=== PATIENT | female | born 1950 | race American Indian/Alaskan Native ===

== ENCOUNTER 2019-01-29 21:11 | Inpatient (IN) | payer MEDICARE, OTHER ==
--- NOTE | 2019-01-29 22:05 | Emergency Department Report ---
Blank Doc - Documentation Documentation: This is a 68-year-old female that presents with syncope episode today. This initial assessment/diagnostic orders/clinical plan/treatment(s) is/are subject to change based on patient's health status, clinical progression and re- assessment by fellow clinical providers in the ED. Further treatment and workup at subsequent clinical providers discretion. Patient/guardians urged not to elope from the ED as their condition may be serious if not clinically assessed and managed. Initial orders include: 1- Patient sent to MAIN ED for further evaluation and treatment 2- EKG 3- labs 3- CT head
[2019-01-29 23:12] LABS: Basophils # (Auto) 0.1 K/mm3 (0.0-0.1); Basophils % (Auto) 0.6 % (0.0-1.8); Eosinophils # (Auto) 0.2 K/mm3 (0.0-0.4); Eosinophils % (Auto) 1.7 % (0.0-4.3); Hemoglobin 13.9 gm/dl (10.1-14.3); Lymphocytes # (Auto) 1.7 K/mm3 (1.2-5.4); Lymphocytes % (Auto) 12.3 % (13.4-35.0); Mean Corpuscular HGB Conc 34 % (30-34); Mean Corpuscular Volume 94 fl (79-97); Monocytes # (Auto) 0.9 K/mm3 (0.0-0.8); Monocytes % (Auto) 6.5 % (0.0-7.3); Platelet Count 189 K/mm3 (140-440); Red Blood Count 4.36 M/mm3 (3.65-5.03); Red Cell Distribution Width 14.7 % (13.2-15.2)
[2019-01-29 23:21] LABS: INR 0.89 (0.87-1.13); Partial Thromboplastin Time 23.8 Sec. (24.2-36.6)
[2019-01-29 23:37] LABS: Creatine Kinase MB 2.8 ng/mL (0.0-4.0)
[2019-01-29 23:40] LABS: Alanine Aminotransferase 13 units/L (7-56); Albumin 3.6 g/dL (3.9-5); BUN/Creatinine Ratio 16; Blood Urea Nitrogen 19 mg/dL (7-17); Calcium 9.4 mg/dL (8.4-10.2); Hemolysis Index 41
--- NOTE | 2019-01-30 00:26 | Cat Scan Report ---
PROCEDURE: CT HEAD/BRAIN WO CON TECHNIQUE: Computerized tomography of the head was performed without contrast material. HISTORY: Syncope COMPARISONS: None . FINDINGS: Brain: There is no evidence of intracranial hemorrhage. No parenchymal hemorrhage is seen. No mass lesions or mass effect is identified. No abnormal extra-axial fluid collections or masses are seen. There is nonspecific mineralization of the right basal ganglia. There is some decreased density seen in the periventricular white matter without mass effect. This i s fairly symmetric and does not exhibit any mass effect consistent with gliosis probably on the basis of microvascular disease or white matter changes of aging. Ventricles: The ventricles are normal size and are midline.. Bone Windows: No evidence of fracture. Paranasal sinuses: Visualized portions appear clear.. Mastoid air cells: Clear. IMPRESSION: Mild decreased density periventricular white matter without mass effect suggesting gliosis related to microvascular disease or white matter changes of aging. No other abnormalities are identified. This document is electronically signed by Kain Pereyra MD., Jan 30 2019 12:24:21 AM ET
--- NOTE | 2019-01-30 00:43 | Emergency Department Report ---
ED Syncope HPI - General Chief Complaint: Syncope Stated Complaint: FELL WITH HEAD INJURY Time Seen by Provider: 01/29/19 22:03 Source: patient, family Exam Limitations: no limitations - History of Present Illness Initial Comments: 68-year-old female with past medical history GERD, hypertension, multiple sclerosis, and mitral valve prolapse as a possible complaints of syncopal episode. Patient states she felt lightheaded and weak all over. Her daughter showed me a video of the patient. She was exiting the home when episode happened. At the doorway she became weak and wasn't responding to conversation. She then fell forward as her purse caught in the door handle, landing on the ground and striking the left side of her head. No seizure activity noted. Unconscious episode was very brief. Patient has been icing her left forehead hematoma. Complains of 7/10 headache. She denies any shortness of breath, chest pain, palpitations, abdominal pain, nausea, vomiting, diaphoresis, melena, hematochezia, diarrhea, hematemesis, or decreased by mouth intake. Since the fall she has had a left sided rib pain that is worse with movement, palpation, and deep inspiration. Patient reports he had a stress test several weeks ago performed by her PMD. PMD is affiliated with [facility]. She also sees a neurologist for her multiple sclerosis. - Related Data Allergies/Adverse Reactions: Allergies No Known Allergies Allergy (Unverified 01/29/19 21:21) ED Review of Systems ROS: Stated complaint: FELL WITH HEAD INJURY Other details as noted in HPI Comment: All other systems reviewed and negative ED Past Medical Hx - Past Medical History Hx Hypertension: Yes Hx CVA: No Hx Heart Attack/AMI: No Hx Congestive Heart Failure: No Hx Diabetes: No Hx Deep Vein Thrombosis: No Hx Pulmonary Embolism: No Hx GERD: Yes Hx Liver Disease: No Hx Renal Disease: No Hx of Cancer: No Hx Sickle Cell Disease: No Hx Arthritis: Yes Hx Headaches / Migraines: Yes Hx Seizures: No Hx Kidney Stones: No Hx Psychiatric Treatment: No Hx Asthma: (Bronchitis) Hx COPD: No Hx Tuberculosis: No Hx Dementia: No Hx HIV: No Additional medical history: MS, MVP - Surgical History Hx Open Heart Surgery: No Hx Pacemaker: No Hx Internal Defibrillator: No Hx Cholecystectomy: Yes Hx Appendectomy: No Hx Breast Surgery: No Additional Surgical History: Hernia Repair, ACL Repair - Social History Smoking Status: Never Smoker Substance Use Type: Marijuana ED Physical Exam - General Limitations: No Limitations - Other Other exam information: General: No limitations, patient is alert in no acute distress Head exam: Atraumatic, normocephalic Eyes exam: Normal appearance ENT: Moist mucous membrane, normal oropharynx Neck exam: Normal inspection, full range of motion, no meningismus nontender Respiratory exam: Clear to auscultation bilateral, no wheezes, rales, crackles Cardiovascular: Normal rate and rhythm, lower rib tenderness underneath the breast. Without crepitus, ecchymosis, or deformity. L Abdomen: Soft, nondistended, and nontender, with normal bowel sounds, no rebound, or guarding Extremity: Full range of motion normal inspection no deformity Back: Normal Inspection, full range of motion, no tenderness Neurologic: Alert, oriented x3, cranial nerves intact, no motor or sensory deficit Psychiatric: normal affect, normal mood Skin: Warm, dry, intact ED Course Vital Signs 01/29/19 01/29/19 01/29/19 21:17 22:01 23:26 Temperature 98.0 F 98.0 F Pulse Rate 87 90 77 Respiratory 18 18 11 L Rate Blood Pressure 105/56 105/56 O2 Sat by Pulse 98 98 Oximetry 01/29/19 01/29/19 01/29/19 23:27 23:28 23:29 Temperature Pulse Rate 79 78 81 Respiratory 13 16 12 Rate Blood Pressure 165/84 165/84 O2 Sat by Pulse 99 99 99 Oximetry 01/29/19 01/29/19 23:31 23:33 Temperature Pulse Rate 75 Respiratory 11 L 16 Rate Blood Pressure 165/84 O2 Sat by Pulse 99 99 Oximetry ED Medical Decision Making - Lab Data Result diagrams: 01/29/19 22:50 01/29/19 22:50 Lab Results 01/29/19 01/29/19 01/29/19 Range/Units 22:50 22:50 22:50 WBC 13.6 H (4.5-11.0) K/mm3 RBC 4.36 (3.65-5.03) M/mm3 Hgb 13.9 (10.1-14.3) gm/dl Hct 41.0 (30.3-42.9) % MCV 94 (79-97) fl MCH 32 (28-32) pg MCHC 34 (30-34) % RDW 14.7 (13.2-15.2) % Plt Count 189 (140-440) K/mm3 Lymph % (Auto) 12.3 L (13.4-35.0) % [place] % (Auto) 6.5 (0.0-7.3) % Eos % (Auto) 1.7 (0.0-4.3) % Baso % (Auto) 0.6 (0.0-1.8) % Lymph # 1.7 (1.2-5.4) K/mm3 [place] # 0.9 H (0.0-0.8) K/mm3 Eos # 0.2 (0.0-0.4) K/mm3 Baso # 0.1 (0.0-0.1) K/mm3 Seg Neutrophils % 78.9 H (40.0-70.0) % Seg Neutrophils # 10.7 H (1.8-7.7) K/mm3 PT 12.6 (12.2-14.9) Sec. INR 0.89 (0.87-1.13) APTT 23.8 L (24.2-36.6) Sec. Sodium 141 (137-145) mmol/L Potassium 3.9 (3.6-5.0) mmol/L Chloride 108.5 H (98-107) mmol/L Carbon Dioxide 20 L (22-30) mmol/L Anion Gap 16 mmol/L BUN 19 H (7-17) mg/dL Creatinine 1.2 (0.7-1.2) mg/dL Estimated GFR 54 ml/min BUN/Creatinine Ratio 16 % Glucose 110 H (65-100) mg/dL Calcium 9.4 (8.4-10.2) mg/dL Total Bilirubin < 0.20 (0.1-1.2) mg/dL AST 16 (5-40) units/L ALT 13 (7-56) units/L Alkaline Phosphatase 49 (35-129) units/L Total Creatine Kinase 125 (30-135) units/L CK-MB (CK-2) 2.8 (0.0-4.0) ng/mL CK-MB (CK-2) Rel Index 2.2 (0-4) Troponin T < 0.010 (0.00-0.029) ng/mL Total Protein 6.8 (6.3-8.2) g/dL Albumin 3.6 L (3.9-5) g/dL Albumin/Globulin Ratio 1.1 % - EKG Data -: EKG Interpreted by Me EKG shows normal: sinus rhythm (69), axis (qrs -52), QRS complexes (qrsd 76), ST-T waves (lat t wave ) Rate: normal - EKG Data When compared to previous EKG there are: previous EKG unavailable - Radiology Data Radiology results: report reviewed CT head non contrast HISTORY: Syncope COMPARISONS: None . FINDINGS: Brain: There is no evidence of intracranial hemorrhage. No parenchymal hemorrhage is seen. No mass lesions or mass effect is identified. No abnormal extra-axial fluid collections or masses are seen. There is nonspecific mineralization of the right basal ganglia. There is some decreased density seen in the periventricular white matter without mass effect. This is fairly symmetric and does not exhibit any mass effect consistent with gliosis probably on the basis of microvascular disease or white matter changes of aging. Ventricles: The ventricles are normal size and are midline.. Bone Windows: No evidence of fracture. Paranasal sinuses: Visualized portions appear clear.. Mastoid air cells: Clear. IMPRESSION: Mild decreased density periventricular white matter without mass effect suggesting gliosis related to microvascular disease or white matter changes of aging. No other abnormalities are identified. PROCEDURE: CT CERVICAL SPINE WO CON TECHNIQUE: Computerized tomography of the cervical spine was performed from the skull base to T1 without contrast material. HISTORY: Syncope COMPARISONS: None . FINDINGS: No fracture or subluxation is seen. Prevertebral soft tissues appear normal. Posterior elements are intact. Moderate facet arthritis visualized bilaterally at C2-3, C3-4, milder changes seen in the remainder of the cervical spine.. Diffuse disc space narrowing with anterior and posterior osteophyte formation visualized from the C3-4 through the C7-T1 level. The posterior osteophytic spurs are largest at C6-C7. No focal disc herniation is seen. The posterior osteophytic spurs do obscure portions of the anterior epidural space without definite cord compression or spinal stenosis. IMPRESSION: No fracture or subluxation is seen. Moderate degenerative disc disease 7) is present as described. No focal disc herniation or spinal stenosis is seen. . PROCEDURE: XR RIBS UNI W PA CHEST 3+V LT TECHNIQUE: Unilateral rib radiographs, 2 views of the left ribs. HISTORY: fall, left rib pain COMPARISONS: None . FINDINGS: Lung: Normal . Pleural space: Normal . Pneumothorax: None . Bony thorax/ribs: No acute or displaced rib fractures. . IMPRESSION: No acute or displaced rib fracture - Medical Decision Making pt s/p syncope episode with forehead and rib injury ct images without acute findings ekg with flip t waves lat, no previous for comparison, trp neg. cp reproducible and occured after fall on left side rib series results pending at dispo pt tx with asa and tramadol hospitalist informed for admission - Differential Diagnosis fracture, contusion, sprain Critical Care Time: No Critical care attestation.: If time is entered above; I have spent that time in minutes in the direct care of this critically ill patient, excluding procedure time. ED Disposition Clinical Impression: Syncope, Rib pain on left side, Hx of multiple sclerosis, HTN (hypertension), History of mitral valve prolapse, Traumatic hematoma of forehead Disposition: OP ADMIT IP TO THIS HOSP Is pt being admited?: Yes Condition: Stable Time of Disposition: 01:50
--- NOTE | 2019-01-30 00:43 | Cat Scan Report ---
PROCEDURE: CT CERVICAL SPINE WO CON TECHNIQUE: Computerized tomography of the cervical spine was performed from the skull base to T1 wit hout contrast material. HISTORY: Syncope COMPARISONS: None . FINDINGS: No fracture or subluxation is seen. Prevertebral soft tissues appear normal. Posterior elements are i ntact. Moderate facet arthritis visualized bilaterally at C2-3, C3-4, milder changes seen in the go yanni of the cervical spine.. Diffuse disc space narrowing with anterior and posterior osteophyte for mation visualized from the C3-4 through the C7-T1 level. The posterior osteophytic spurs are largest at C6-C7. No focal disc herniation is seen. The posterior osteophytic spurs do obscure portions of th e anterior epidural space without definite cord compression or spinal stenosis. IMPRESSION: No fracture or subluxation is seen. Moderate degenerative disc disease 7) is present as described. No focal disc herniation or spinal stenosis is seen. . This document is electronically signed by Kain Pereyra MD., Jan 30 2019 12:41:43 AM ET
[2019-01-30] MEDS ORDERED: ULTRAM PO ONE (01:45)
[2019-01-30] MEDS ORDERED: TORADOL IV ONE (01:45)
[2019-01-30] MEDS ORDERED: ASPIRIN PO ONE (01:46)
--- NOTE | 2019-01-30 02:03 | XRay Report ---
PROCEDURE: XR RIBS UNI W PA CHEST 3+V LT TECHNIQUE: Unilateral rib radiographs, 2 views of the left ribs. HISTORY: fall, left rib pain COMPARISONS: None . FINDINGS: Lung: Normal . Pleural space: Normal . Pneumothorax: None . Bony thorax/ribs: No acute or displaced rib fractures. . IMPRESSION: No acute or displaced rib fractures. . This document is electronically signed by Aldair Reyes MD., Jan 30 2019 02:00:30 AM ET
[2019-01-30] MEDS ORDERED: SODIUM CHLORIDE FLUSH SYRINGE 10 ML IV PRN (02:48)
[2019-01-30] MEDS ORDERED: TYLENOL PO PRN (02:48)
[2019-01-30] MEDS ORDERED: ZOFRAN IV PRN (02:48)
[2019-01-30] MEDS ORDERED: TORADOL ONE (02:49)
[2019-01-30 04:33] LABS: Bacteria,Urine 1+ /HPF (Negative); Bilirubin,Urine NEG (Negative); Blood,Urine NEG (Negative); Color,Urine Yellow (Yellow); Hyaline Casts,Urine 5 /LPF; Mucus,Urine 2+ /HPF; Protein,Urine <15 mg/dL mg/dL (Negative); Urobilinogen,Urine < 2.0 mg/dL (<2.0)
--- NOTE | 2019-01-30 05:21 | History and Physical Report ---
<LEROY LION - Last Filed: 01/30/19 05:22> History of Present Illness Date of examination: 01/30/19 Date of admission: 01/30/19 03:21 Chief complaint: Syncope History of present illness: Pt is a 68-year-old female with PMHx of GERD, hypertension, multiple sclerosis, and mitral valve prolapse (MVP) who was brought to the ER for complaints of syncopal episode. Patient states she felt lightheaded and weak, lost consciousness and collapsed to the ground. Pt's daughter who witness the incident states that she passed out for a short period, landed on the ground and strike the left side of her head. She did not report any seizure activity, bladder or bowel incontinence, postical confusion or disorientation. Patient complains of headache, pain on the left rib cage, that is worse with movement, manipulation and with deep breathing. Pt denies chest pain, denies palpitations, denies abdominal pain, denies dizziness, denies nausea, denies vomiting, denies SOB, denies diaphoresis. On admission, pt was alert and orientated x 4, pleasant, able to provide medical history with excellent memory. A CT scan of the head was negative except for mild decrease periventricular white matter, CT spine negative fracture except for degenerative joint disease, reviewed extremity was negative for fracture. Patient is admitted for further evaluation of her syncopal episode. Past History Past Medical History: CAD (mitral valve prolapse), GERD, hypertension, migraines, other (multiple sclerosis) Past Surgical History: No surgical history Social history: no significant social history Family history: no significant family history Medications and Allergies Allergies Allergy/AdvReac Type Severity Reaction Status Date / Time No Known Allergies Allergy Unverified 01/29/19 21:21 Active Meds: Active Medications Acetaminophen (Tylenol) 650 mg PO Q4H PRN PRN Reason: Pain MILD(1-3)/Fever >100.5/LANG Ondansetron HCl (Zofran) 4 mg IV Q8H PRN PRN Reason: Nausea And Vomiting Sodium Chloride (Sodium Chloride Flush Syringe 10 Ml) 10 ml IV BID CHRISTIANO Sodium Chloride (Sodium Chloride Flush Syringe 10 Ml) 10 ml IV PRN PRN PRN Reason: LINE FLUSH Review of Systems Musculoskeletal: other (left rib cage pain) Exam - Constitutional Vitals: Temp Pulse Resp BP Pulse Ox 98.0 F 75 16 165/74 99 01/29/19 22:01 01/29/19 23:31 01/29/19 23:33 01/30/19 04:05 01/30/19 04:05 General appearance: Present: no acute distress - EENT Eyes: Present: PERRL, EOM intact ENT: hearing intact - Neck Neck: Present: supple - Respiratory Respiratory: bilateral: CTA - Cardiovascular Heart Sounds: Present: S1 & S2 - Extremities Extremities: no ischemia Peripheral Pulses: within normal limits - Abdominal General gastrointestinal: Present: soft, non-tender, distended - Rectal Rectal Exam: deferred - Integumentary Integumentary: Present: clear, warm, dry - Musculoskeletal Musculoskeletal: strength equal bilaterally - Psychiatric Psychiatric: appropriate mood/affect, cooperative - Neurologic Neurologic: moves all extremities Results - Labs CBC & Chem 7: 01/29/19 22:50 01/29/19 22:50 Labs: Laboratory Last Values WBC 13.6 K/mm3 (4.5-11.0) H 01/29/19 22:50 RBC 4.36 M/mm3 (3.65-5.03) 01/29/19 22:50 Hgb 13.9 gm/dl (10.1-14.3) 01/29/19 22:50 Hct 41.0 % (30.3-42.9) 01/29/19 22:50 MCV 94 fl (79-97) 01/29/19 22:50 MCH 32 pg (28-32) 01/29/19 22:50 MCHC 34 % (30-34) 01/29/19 22:50 RDW 14.7 % (13.2-15.2) 01/29/19 22:50 Plt Count 189 K/mm3 (140-440) 01/29/19 22:50 Lymph % (Auto) 12.3 % (13.4-35.0) L 01/29/19 22:50 [place] % (Auto) 6.5 % (0.0-7.3) 01/29/19 22:50 Eos % (Auto) 1.7 % (0.0-4.3) 01/29/19 22:50 Baso % (Auto) 0.6 % (0.0-1.8) 01/29/19 22:50 Lymph # 1.7 K/mm3 (1.2-5.4) 01/29/19 22:50 [place] # 0.9 K/mm3 (0.0-0.8) H 01/29/19 22:50 Eos # 0.2 K/mm3 (0.0-0.4) 01/29/19 22:50 Baso # 0.1 K/mm3 (0.0-0.1) 01/29/19 22:50 Seg Neutrophils % 78.9 % (40.0-70.0) H 01/29/19 22:50 Seg Neutrophils # 10.7 K/mm3 (1.8-7.7) H 01/29/19 22:50 PT 12.6 Sec. (12.2-14.9) 01/29/19 22:50 INR 0.89 (0.87-1.13) 01/29/19 22:50 APTT 23.8 Sec. (24.2-36.6) L 01/29/19 22:50 Sodium 141 mmol/L (137-145) 01/29/19 22:50 Potassium 3.9 mmol/L (3.6-5.0) 01/29/19 22:50 Chloride 108.5 mmol/L (98-107) H 01/29/19 22:50 Carbon Dioxide 20 mmol/L (22-30) L 01/29/19 22:50 16 mmol/L 01/29/19 22:50 BUN 19 mg/dL (7-17) H 01/29/19 22:50 1.2 mg/dL (0.7-1.2) 01/29/19 22:50 Estimated GFR 54 ml/min 01/29/19 22:50 16 % 01/29/19 22:50 Glucose 110 mg/dL (65-100) H 01/29/19 22:50 Calcium 9.4 mg/dL (8.4-10.2) 01/29/19 22:50 < 0.20 mg/dL (0.1-1.2) 01/29/19 22:50 AST 16 units/L (5-40) 01/29/19 22:50 ALT 13 units/L (7-56) 01/29/19 22:50 49 units/L (35-129) 01/29/19 22:50 125 units/L (30-135) 01/29/19 22:50 CK-MB (CK-2) 2.8 ng/mL (0.0-4.0) 01/29/19 22:50 CK-MB (CK-2) Rel Index 2.2 (0-4) 01/29/19 22:50 < 0.010 ng/mL (0.00-0.029) 01/29/19 22:50 6.8 g/dL (6.3-8.2) 01/29/19 22:50 3.6 g/dL (3.9-5) L 01/29/19 22:50 1.1 % 01/29/19 22:50 Yellow (Yellow) 01/29/19 04:00 Slightly-cloudy (Clear) 01/29/19 04:00 6.0 (5.0-7.0) 01/29/19 04:00 Ur Specific [place] 1.023 (1.003-1.030) 01/29/19 04:00 <15 mg/dl mg/dL (Negative) 01/29/19 04:00 Neg mg/dL (Negative) 01/29/19 04:00 Neg mg/dL (Negative) 01/29/19 04:00 Neg (Negative) 01/29/19 04:00 Neg (Negative) 01/29/19 04:00 Neg (Negative) 01/29/19 04:00 < 2.0 mg/dL (<2.0) 01/29/19 04:00 Ur Leukocyte Esterase Neg (Negative) 01/29/19 04:00 11.0 /HPF (0.0-6.0) H 01/29/19 04:00 2.0 /HPF (0.0-6.0) 01/29/19 04:00 U Epithel Cells (Auto) 7.0 /HPF (0-13.0) 01/29/19 04:00 1+ /HPF (Negative) 01/29/19 04:00 Hyaline Casts 5 /LPF 01/29/19 04:00 2+ /HPF 01/29/19 04:00 Assessment and Plan Assessment and plan: 1. Acute syncopal episode (likely due to valvular disease) 2. Mitral valve prolapse 3. Mild leukocytosis (likely due to the margination) 4. Multiple sclerosis (on remission) 5. H/o migraine headache 6. Hypertension 7. GERD Plan. Patient is admitted for acute syncope Neuro check every 4 hours Orthostatic vital signs MRI of the brain, MRA of the head and neck Echocardiogram to evaluate for valvular disease Review home meds when available For percussion We'll consult cardiology or Neurology test results available Plan of care discussed with patient voiced understanding Advance Directives: Yes VTE prophylaxis?: Mechanical Plan of care discussed with patient/family: Yes <ADÁN RESENDIZ - Last Filed: 01/31/19 03:15> History of Present Illness Date of admission: 01/30/19 03:21 Medications and Allergies Active Meds: Active Medications Acetaminophen (Tylenol) 650 mg PO Q4H PRN PRN Reason: Pain MILD(1-3)/Fever >100.5/LANG Hydralazine HCl (Apresoline) 25 mg PO Q8HR [facility] Lorazepam (Ativan) 2 mg IV Q4H PRN PRN Reason: Agitation Last Admin: 01/30/19 09:30 Dose: 2 mg Documented by: Metoprolol Tartrate (Lopressor) 50 mg PO DAILY [facility] Last Admin: 01/30/19 18:02 Dose: 50 mg Documented by: Miscellaneous Medication (Avonex (Nf)) 30 mg SUB-Q QWEEK [facility] Montelukast Sodium (Singulair) 10 mg PO QPM [facility] Last Admin: 01/30/19 18:02 Dose: 10 mg Documented by: Ondansetron HCl (Zofran) 4 mg IV Q8H PRN PRN Reason: Nausea And Vomiting Oxycodone/Acetaminophen (Percocet 5/325) 1 tab PO Q6H PRN PRN Reason: Pain, Moderate (4-6) Last Admin: 01/30/19 23:20 Dose: 1 tab Documented by: Pantoprazole Sodium (Protonix) 40 mg PO DAILY [facility] Sodium Chloride (Sodium Chloride Flush Syringe 10 Ml) 10 ml IV BID [facility] Last Admin: 01/30/19 09:29 Dose: 10 ml Documented by: Sodium Chloride (Sodium Chloride Flush Syringe 10 Ml) 10 ml IV PRN PRN PRN Reason: LINE FLUSH Verapamil HCl (Calan Sr) 240 mg PO Q12HR [facility] Last Admin: 01/30/19 18:02 Dose: 240 mg Documented by: Exam - Constitutional Vitals: Temp Pulse Resp BP Pulse Ox 98.3 F 71 20 132/77 94 01/31/19 00:08 01/31/19 00:08 01/31/19 00:08 01/31/19 00:08 01/31/19 00:08 Results - Labs CBC & Chem 7: 01/29/19 22:50 01/29/19 22:50 Labs: Laboratory Last Values WBC 13.6 K/mm3 (4.5-11.0) H 01/29/19 22:50 RBC 4.36 M/mm3 (3.65-5.03) 01/29/19 22:50 Hgb 13.9 gm/dl (10.1-14.3) 01/29/19 22:50 Hct 41.0 % (30.3-42.9) 01/29/19 22:50 MCV 94 fl (79-97) 01/29/19 22:50 MCH 32 pg (28-32) 01/29/19 22:50 MCHC 34 % (30-34) 01/29/19 22:50 RDW 14.7 % (13.2-15.2) 01/29/19 22:50 Plt Count 189 K/mm3 (140-440) 01/29/19 22:50 Lymph % (Auto) 12.3 % (13.4-35.0) L 01/29/19 22:50 [place] % (Auto) 6.5 % (0.0-7.3) 01/29/19 22:50 Eos % (Auto) 1.7 % (0.0-4.3) 01/29/19 22:50 Baso % (Auto) 0.6 % (0.0-1.8) 01/29/19 22:50 Lymph # 1.7 K/mm3 (1.2-5.4) 01/29/19 22:50 [place] # 0.9 K/mm3 (0.0-0.8) H 01/29/19 22:50 Eos # 0.2 K/mm3 (0.0-0.4) 01/29/19 22:50 Baso # 0.1 K/mm3 (0.0-0.1) 01/29/19 22:50 Seg Neutrophils % 78.9 % (40.0-70.0) H 01/29/19 22:50 Seg Neutrophils # 10.7 K/mm3 (1.8-7.7) H 01/29/19 22:50 PT 12.6 Sec. (12.2-14.9) 01/29/19 22:50 INR 0.89 (0.87-1.13) 01/29/19 22:50 APTT 23.8 Sec. (24.2-36.6) L 01/29/19 22:50 Sodium 141 mmol/L (137-145) 01/29/19 22:50 Potassium 3.9 mmol/L (3.6-5.0) 01/29/19 22:50 Chloride 108.5 mmol/L (98-107) H 01/29/19 22:50 Carbon Dioxide 20 mmol/L (22-30) L 01/29/19 22:50 16 mmol/L 01/29/19 22:50 BUN 19 mg/dL (7-17) H 01/29/19 22:50 1.2 mg/dL (0.7-1.2) 01/29/19 22:50 Estimated GFR 54 ml/min 01/29/19 22:50 16 % 01/29/19 22:50 Glucose 110 mg/dL (65-100) H 01/29/19 22:50 POC Glucose 112 (70-105) H 01/30/19 17:45 Calcium 9.4 mg/dL (8.4-10.2) 01/29/19 22:50 < 0.20 mg/dL (0.1-1.2) 01/29/19 22:50 AST 16 units/L (5-40) 01/29/19 22:50 ALT 13 units/L (7-56) 01/29/19 22:50 49 units/L (35-129) 01/29/19 22:50 125 units/L (30-135) 01/29/19 22:50 CK-MB (CK-2) 2.8 ng/mL (0.0-4.0) 01/29/19 22:50 CK-MB (CK-2) Rel Index 2.2 (0-4) 01/29/19 22:50 < 0.010 ng/mL (0.00-0.029) 01/29/19 22:50 6.8 g/dL (6.3-8.2) 01/29/19 22:50 3.6 g/dL (3.9-5) L 01/29/19 22:50 1.1 % 01/29/19 22:50 Yellow (Yellow) 01/29/19 04:00 Slightly-cloudy (Clear) 01/29/19 04:00 6.0 (5.0-7.0) 01/29/19 04:00 Ur Specific [place] 1.023 (1.003-1.030) 01/29/19 04:00 <15 mg/dl mg/dL (Negative) 01/29/19 04:00 Neg mg/dL (Negative) 01/29/19 04:00 Neg mg/dL (Negative) 01/29/19 04:00 Neg (Negative) 01/29/19 04:00 Neg (Negative) 01/29/19 04:00 Neg (Negative) 01/29/19 04:00 < 2.0 mg/dL (<2.0) 01/29/19 04:00 Ur Leukocyte Esterase Neg (Negative) 01/29/19 04:00 11.0 /HPF (0.0-6.0) H 01/29/19 04:00 2.0 /HPF (0.0-6.0) 01/29/19 04:00 U Epithel Cells (Auto) 7.0 /HPF (0-13.0) 01/29/19 04:00 1+ /HPF (Negative) 01/29/19 04:00 Hyaline Casts 5 /LPF 01/29/19 04:00 2+ /HPF 01/29/19 04:00 Assessment and Plan Assessment and plan: I personally discussed the patient with the OIL PRODUCER-C. I agree with the above assessment and plan
[2019-01-30] MEDS ORDERED: ATIVAN IV PRN (09:00)
[2019-01-30] MEDS: SODIUM CHLORIDE FLUSH SYRINGE 10 ML IV SCH ×2 (09:29→22:00)
[2019-01-30] MEDS: PERCOCET 5/325 PO PRN ×2 (09:29→23:20)
--- NOTE | 2019-01-30 10:32 | Consultation ---
History of Present Illness Consult date: 01/30/19 Requesting physician: TUCKER REYNOLDS Consult reason: syncope History of present illness: The pt is a 68-year-old female with past medical history of GERD, hypertension, multiple sclerosis, and reported mitral valve prolapse. She states that she is regularly followed by Dr. Leonel Haas, a slasher tender helper in [place], [place]. She presented for evaluation following a syncopal episode. She states that she was walking out of her daughter's house when she suddenly felt lightheaded and weak all over. Her daughter has a doorbell with video capabilities and the event was caught on video. Pt was exiting the home when episode happened and at the doorway she became weak and wasn't responding to conversation. She then fell forward as her purse caught in the door handle, landing on the ground and striking the left side of her head. No seizure activity noted. Unconscious episode was very brief. Pt denies any occurrence of chest pain, shortness of breath, palpitations, nausea, vomiting, diaphoresis. Since the fall she has had a left sided rib pain that is worse with movement, palpation, and deep inspiration. Patient reports he had a stress test several weeks ago performed by her slasher tender helper's office. She states this test was normal to her knowledge. Medical records from her slasher tender helper have been requested. Past History Past Medical History: GERD, hypertension, migraines, other (multiple sclerosis; reported MVP) Past Surgical History: No surgical history Social history: no significant social history Family history: no significant family history Medications and Allergies Allergies Allergy/AdvReac Type Severity Reaction Status Date / Time No Known Allergies Allergy Unverified 01/29/19 21:21 Home Medications Medication Instructions Recorded Confirmed Last Taken Type Avonex (Nf) 30 mg SUB-Q QWEEK 01/30/19 01/30/19 2 Weeks Ago History ~01/16/19 Esomeprazole Magnesium [Nexium 40 mg PO DAILY 01/30/19 01/30/19 1 Day Ago History 24Hr] ~01/29/19 Lisinopril [Zestril TAB] 40 1000units PO DAILY 01/30/19 01/30/19 1 Day Ago History ~01/29/19 Metoprolol [Lopressor TAB] 50 mg PO DAILY 01/30/19 01/30/19 1 Day Ago History ~01/29/19 Montelukast [Singulair] 10 mg PO DAILY 01/30/19 01/30/19 2 Days Ago History ~01/28/19 Verapamil HCl [Verapamil ER] 240 mg PO DAILY 01/30/19 01/30/19 2 Days Ago History ~01/28/19 hydrALAZINE [Apresoline] 25 mg PO Q8HR 01/30/19 01/30/19 1 Day Ago History ~01/29/19 Active Meds: Active Medications Acetaminophen (Tylenol) 650 mg PO Q4H PRN PRN Reason: Pain MILD(1-3)/Fever >100.5/LANG Lorazepam (Ativan) 2 mg IV Q4H PRN PRN Reason: Agitation Last Admin: 01/30/19 09:30 Dose: 2 mg Documented by: Ondansetron HCl (Zofran) 4 mg IV Q8H PRN PRN Reason: Nausea And Vomiting Oxycodone/Acetaminophen (Percocet 5/325) 1 tab PO Q6H PRN PRN Reason: Pain, Moderate (4-6) Last Admin: 01/30/19 09:29 Dose: 1 tab Documented by: Sodium Chloride (Sodium Chloride Flush Syringe 10 Ml) 10 ml IV BID CHRISTIANO Last Admin: 01/30/19 09:29 Dose: 10 ml Documented by: Sodium Chloride (Sodium Chloride Flush Syringe 10 Ml) 10 ml IV PRN PRN PRN Reason: LINE FLUSH Review of Systems Constitutional: no weight loss, no weight gain, no fever, no chills, no sweats Ears, nose, mouth and throat: no ear pain, no nose pain, no sinus pressure, no sinus pain Cardiovascular: syncope, lightheadedness, high blood pressure, no chest pain, no orthopnea, no palpitations, no rapid/irregular heart beat, no edema, no shortness of breath, no dyspnea on exertion Respiratory: no cough, no shortness of breath, no dyspnea on exertion, no congestion, no wheezing, no pain on inspiration Gastrointestinal: no abdominal pain, no nausea, no vomiting, no diarrhea, no constipation, no change in bowel habits Genitourinary Female: no pelvic pain, no flank pain, no dysuria, no urinary frequency, no urgency Musculoskeletal: no neck stiffness, no neck pain, no shooting arm pain, no arm numbness/tingling, no low back pain, no shooting leg pain, no leg numbness/tingling, no redness of joints Integumentary: no rash, no pruritis, no redness, no sores, no wounds Neurological: syncope, no head injury, no weakness, no parathesias, no numbness, no tingling, no seizures Psychiatric: no anxiety Endocrine: no cold intolerance, no heat intolerance Hematologic/Lymphatic: no easy bruising, no easy bleeding Allergic/Immunologic: no urticaria, no wheezing Physical Examination Vital Signs Temp Pulse Resp BP Pulse Ox 98.0 F 87 18 105/56 98 01/29/19 21:17 01/29/19 21:17 01/29/19 21:17 01/29/19 21:17 01/29/19 21:17 General appearance: no acute distress HEENT: Positive: PERRL, Normocephaly, Mucus Membranes Moist Neck: Positive: neck supple, trachea midline Cardiac: Positive: Reg Rate and Rhythm, S1/S2 Lungs: Positive: Decreased Breath Sounds Neuro: Positive: Grossly Intact Abdomen: Positive: Soft. Negative: Tender Skin: Negative: Rash, Wound Musculoskeletal: No Pain Extremities: Absent: edema Results 01/29/19 22:50 01/29/19 22:50 Cardiac Enzymes 01/29/19 Range/Units 22:50 AST 16 (5-40) units/L CK-MB (CK-2) 2.8 (0.0-4.0) ng/mL Coagulation 01/29/19 Range/Units 22:50 PT 12.6 (12.2-14.9) Sec. INR 0.89 (0.87-1.13) APTT 23.8 L (24.2-36.6) Sec. CBC 01/29/19 Range/Units 22:50 WBC 13.6 H (4.5-11.0) K/mm3 RBC 4.36 (3.65-5.03) M/mm3 Hgb 13.9 (10.1-14.3) gm/dl Hct 41.0 (30.3-42.9) % Plt Count 189 (140-440) K/mm3 Lymph # 1.7 (1.2-5.4) K/mm3 [place] # 0.9 H (0.0-0.8) K/mm3 Eos # 0.2 (0.0-0.4) K/mm3 Baso # 0.1 (0.0-0.1) K/mm3 Comprehensive Metabolic Panel 01/29/19 Range/Units 22:50 Sodium 141 (137-145) mmol/L Potassium 3.9 (3.6-5.0) mmol/L Chloride 108.5 H (98-107) mmol/L Carbon Dioxide 20 L (22-30) mmol/L BUN 19 H (7-17) mg/dL Creatinine 1.2 (0.7-1.2) mg/dL Glucose 110 H (65-100) mg/dL Calcium 9.4 (8.4-10.2) mg/dL AST 16 (5-40) units/L ALT 13 (7-56) units/L Alkaline Phosphatase 49 (35-129) units/L Total Protein 6.8 (6.3-8.2) g/dL Albumin 3.6 L (3.9-5) g/dL - Imaging and Cardiology Echo: pending EKG: report reviewed, image reviewed EKG interpretations - Telemetry EKG Rhythm: Sinus Rhythm - EKG Sinus rhythms and dysrhythmias: sinus rhythm Assessment and Plan Currently stable cardiac status. consider resuming home anti-hypertensive regimen if necessary for BP management. Await echo. Await medical records from 's slasher tender helper in [place], [place]. The patient has been seen in conjunction with Dr. Miranda who agrees with the assessment and plan of care. - Patient Problems (1) Syncope Current Visit: Yes Status: Acute (2) HTN (hypertension) Current Visit: Yes Status: Chronic (3) History of mitral valve prolapse Current Visit: Yes Status: Chronic (4) Hx of multiple sclerosis Current Visit: Yes Status: Chronic
--- NOTE | 2019-01-30 11:55 | Magnetic Resonance Report ---
MRI OF THE BRAIN WITHOUT CONTRAST: HISTORY: Syncope PROCEDURE: Multiplanar, multisequence MR imaging of the brain without IV contrast was performed. FINDINGS: Compared to the CT head dated 12/3618. MRI also demonstrates mild nonspecific chronic white matter changes bilaterally. This most likely represents chronic microvascular ischemic disease although edema limited toward disease could be considered in the appropriate clinical presentation. Otherwise, the brain parenchyma signal intensity and its zal[place]ar white interface are within normal limits on all sequences. No evidence for acute ischemia, hemorrhage or mass. No chronic infarct or extra-axial fluid collection. The midline structures are central. The basal cisterns are patent. Normal ventricular size. The orbital cavities and sella turcica demonstrate no abnormality. The visualized paranasal sinuses and mastoid air cells are well aerated. 1 cm polyp in the medial left maxillary sinus is noted. IMPRESSION: Nonspecific chronic white matter changes. No acute intracranial process is identified.
--- NOTE | 2019-01-30 11:56 | Magnetic Resonance Report ---
MRA NECK WITHOUT CONTRAST HISTORY: Syncope. TECHNIQUE: [id number] imaging with rotational MIP reformations of the neck is submitted. FINDINGS: The bilateral carotid and vertebral systems appear widely patent and free of hemodynamically significant stenosis, aneurysm, or dissection. IMPRESSION: Unremarkable MR angiography of the neck.
--- NOTE | 2019-01-30 11:57 | Magnetic Resonance Report ---
MRA HEAD WITHOUT CONTRAST HISTORY: Syncope. [id number] imaging with MIP reformations of the [place] is submitted. The arteries appear widely patent and free of hemodynamically significant stenosis, aneurysm or dissection. IMPRESSION: Unremarkable MRA head.
--- NOTE | 2019-01-30 16:24 | Event Note ---
Date: 01/30/19 Patient seen and examined Patient admitted with a complaint of syncope Continue current management and plan as dictated H&P Wait for medical records from Norm Wong, cardiology following.
[2019-01-30] MEDS ORDERED: VERAPAMIL HCL 240 MG PO SCH (17:00)
[2019-01-30] MEDS: SINGULAIR PO SCH (18:02)
[2019-01-30] MEDS: LOPRESSOR PO SCH (18:02)
[2019-01-30] MEDS: CALAN SR PO SCH (18:02)
[2019-01-30] MEDS: APRESOLINE PO SCH (22:00)
[2019-01-31] MEDS: APRESOLINE PO SCH ×3 (06:09→21:38)
[2019-01-31] MEDS: PROTONIX PO SCH (09:34)
[2019-01-31] MEDS: LOPRESSOR PO SCH (09:34)
[2019-01-31] MEDS: SODIUM CHLORIDE FLUSH SYRINGE 10 ML IV SCH ×2 (09:35→21:38)
[2019-01-31] MEDS: CALAN SR PO SCH ×2 (09:35→21:38)
[2019-01-31] MEDS ORDERED: ESOMEPRAZOLE MAGNESIUM 40 MG PO SCH (10:00)
--- NOTE | 2019-01-31 10:09 | Progress Note ---
Assessment and Plan 1. Acute syncopal episode (likely due to valvular disease) 2. Mitral valve prolapse 3. Mild leukocytosis (likely due to the margination) 4. Multiple sclerosis (on remission) 5. H/o migraine headache 6. Hypertension 7. GERD 8. UTI Neuro check every 4 hours Orthostatic vital signs MRI of the brain, MRA of the head and neck were unremarkable Echocardiogram to evaluate for valvular disease - showed ejection fraction of 55-60% with diastolic dysfunction Commence pt on Cipro and obtain urine culture We'll consult cardiology or Neurology test results available Plan of care discussed with patient voiced understanding Advance Directives: Yes VTE prophylaxis?: Mechanical Plan of care discussed with patient and family Subjective Date of service: 01/31/19 Principal diagnosis: syncope, leukocytosis, UTI. htn Interval history: Patient lying quietly in bed. Denies any syncope. Denies any chest pain or shortness of breath. Objective - Exam Narrative Exam: Constitutional: Well-nourished well-developed. In no distress Head: Normocephalic atraumatic Eyes: Pupils are equal round and reactive to light Nose: No enlarged turbinates, no septal deviation. Mouth: Moist mucous membranes. Neck: Supple no thyromegaly. No bruit. No JVD Heart: Regular rate and rhythm, S1-S2 normal. No rubs murmurs or gallop Lungs: Clear to auscultation bilaterally. no rales or rhonchi Abdomen: Soft, nontender. Bowel sound are present. Extremities: No edema, no cyanosis, no clubbing. Neuro: Alert oriented Oriented x3. No focal sensory or motor deficit. Skin: No rashes or hyperpigmented spots Musculoskeletal system: No joint pain or swelling Hematological: No petechia or subcutanous hemorrhages. Immunological: No multiple septic spots on the skin Lymphatic: No generalized lymphadenopathy Psychiatry: Euthymic. Calm. - Constitutional Vitals: Vital Signs - 12hr 01/31/19 01/31/19 01/31/19 00:08 05:35 08:41 Temperature 98.3 F 98.5 F 98.5 F Pulse Rate 71 70 65 Respiratory 20 20 18 Rate Blood Pressure 132/77 122/70 114/61 O2 Sat by Pulse 94 98 95 Oximetry 01/31/19 01/31/19 01/31/19 09:33 09:34 09:35 Temperature Pulse Rate 68 69 69 Respiratory Rate Blood Pressure 119/61 119/61 119/61 O2 Sat by Pulse 97 Oximetry - Labs CBC & Chem 7: 01/29/19 22:50 01/29/19 22:50 Labs: Abnormal lab results 01/30/19 Range/Units 17:45 POC Glucose 112 H (70-105)
[2019-01-31 11:32] LABS: BUN/Creatinine Ratio 23; Blood Urea Nitrogen 21 mg/dL (7-17); Calcium 9.1 mg/dL (8.4-10.2); Hemolysis Index 14
--- NOTE | 2019-01-31 11:45 | Progress Note ---
Assessment and Plan clinically stable No evidence thus far of a cardiac etiology of syncope tele and tte unremarkable Per pt (good historian), recent stress mpi in [place], [place] was wnl (records requested) Carotid u/s pending IV abx started today for uti Liberalize fluid intake check orthostatics again d/w pt and family at length - Patient Problems (1) Syncope Current Visit: Yes Status: Acute (2) HTN (hypertension) Current Visit: Yes Status: Chronic (3) Hx of multiple sclerosis Current Visit: Yes Status: Chronic Subjective Date of service: 01/31/19 Principal diagnosis: syncope, leukocytosis, UTI. htn Interval history: no complaints family at bedside Objective Vital Signs Temp Pulse Resp BP BP Pulse Ox 01/31/19 09:35 69 119/61 01/31/19 09:34 69 119/61 01/31/19 09:33 68 119/61 97 01/31/19 08:41 98.5 F 65 18 114/61 95 01/31/19 05:35 98.5 F 70 20 122/70 98 01/31/19 00:08 98.3 F 71 20 132/77 94 01/30/19 20:54 98.3 F 71 20 121/68 96 01/30/19 19:00 77 01/30/19 17:41 98.3 F 70 18 153/79 97 01/30/19 12:32 98.4 F 81 18 152/85 100 - Physical Examination HEENT: Positive: PERRL, Normocephaly, Mucus Membranes Moist Neck: Positive: neck supple, trachea midline Neuro: Positive: Grossly Intact Abdomen: Positive: Soft. Negative: Tender Skin: Negative: Rash, Wound Musculoskeletal: No Pain Extremities: Absent: edema - Labs and Meds Comprehensive Metabolic Panel 01/31/19 Range/Units 10:42 Sodium 141 (137-145) mmol/L Potassium 4.4 (3.6-5.0) mmol/L Chloride 106.3 (98-107) mmol/L Carbon Dioxide 25 (22-30) mmol/L BUN 21 H (7-17) mg/dL Creatinine 0.9 (0.7-1.2) mg/dL Glucose 115 H (65-100) mg/dL Calcium 9.1 (8.4-10.2) mg/dL - Imaging and Cardiology EKG: report reviewed, image reviewed Echo: pending - EKG Sinus rhythms and dysrhythmias: sinus rhythm
[2019-01-31] MEDS: NACL 0.9% 1000 ML 1,000 ML IV SCH (11:55)
[2019-01-31] MEDS: LEVAQUIN 500MG/100ML 500 MG/100 ML BAG IV SCH (11:56)
[2019-01-31] MEDS: PERCOCET 5/325 PO PRN ×2 (14:03→21:37)
[2019-01-31] MEDS: SINGULAIR PO SCH (17:38)
[2019-02-01] MEDS: NACL 0.9% 1000 ML 1,000 ML IV SCH (00:46)
[2019-02-01] MEDS ORDERED: MILK OF MAGNESIA PO PRN (03:03)
[2019-02-01] MEDS: FIORICET PO PRN ×2 (03:12→13:23)
[2019-02-01] MEDS: APRESOLINE PO SCH ×2 (05:31→13:24)
[2019-02-01 07:15] LABS: Basophils % (Auto) 0.7 % (0.0-1.8); Eosinophils # (Auto) 0.2 K/mm3 (0.0-0.4); Eosinophils % (Auto) 3.4 % (0.0-4.3); Hematocrit 36.8 % (30.3-42.9); Hemoglobin 12.3 gm/dl (10.1-14.3); Lymphocytes # (Auto) 1.6 K/mm3 (1.2-5.4); Lymphocytes % (Auto) 24.2 % (13.4-35.0); Mean Corpuscular HGB Conc 34 % (30-34); Mean Corpuscular Volume 94 fl (79-97); Monocytes # (Auto) 0.8 K/mm3 (0.0-0.8); Monocytes % (Auto) 11.2 % (0.0-7.3); Platelet Count 179 K/mm3 (140-440); Red Blood Count 3.94 M/mm3 (3.65-5.03); Red Cell Distribution Width 14.5 % (13.2-15.2)
[2019-02-01] MEDS: CALAN SR PO SCH (10:45)
[2019-02-01] MEDS: LOPRESSOR PO SCH (10:45)
[2019-02-01] MEDS: SODIUM CHLORIDE FLUSH SYRINGE 10 ML IV SCH (10:47)
[2019-02-01] MEDS: PROTONIX PO SCH (10:47)
--- NOTE | 2019-02-01 10:53 | Discharge Summary ---
Providers - Providers Date of Admission: 01/30/19 03:21 Date of discharge: 02/01/19 Attending physician: AKUA NOGUERA 01/30/19 08:15 Consult to Physician [CONS] Routine Comment: Consulting Provider: ELAINE ZHAO Physician Instructions: Reason For Exam: syncope 01/30/19 12:54 Physical Therapy Evaluation and Treat [CONS] Routine Comment: Reason For Exam: SYNCOPE Primary care physician: MARY SRIVASTAVA Hospitalization Reason for admission: syncope from dehydration, Condition: Stable Pertinent studies: CT scan of the head and spine were unremarkable for any acute events, MRI/MRA of the brain showed no evidence of acute infection. Decision was unremarkable for any acute event. EKG showed no dysrhythmias. Procedures: None Hospital course: Pt is a 68-year-old female with PMHx of GERD, hypertension, multiple sclerosis, and mitral valve prolapse (MVP) who was brought to the ER for complaints of syncopal episode. Patient states she felt lightheaded and weak, lost consciousness and collapsed to the ground. Pt's daughter who witness the incident states that she passed out for a short period, landed on the ground and strike the left side of her head. She did not report any seizure activity, bladder or bowel incontinence, postical confusion or disorientation. Patient complains of headache, pain on the left rib cage, that is worse with movement, manipulation and with deep breathing. Pt denies chest pain, denies palpitation s, denies abdominal pain, denies dizziness, denies nausea, denies vomiting, denies SOB, denies diaphoresis. On admission, pt was alert and orientated x 4, pleasant, able to provide medical history with excellent memory. A CT scan of the head was negative except for mild decrease periventricular white matter, CT spine negative fracture except for degenerative joint disease, reviewed extremity was negative for fracture. Patient is admitted for further evaluation of her syncopal episode. Patient was found to have leukocytosis with slightly elevated BUN and creatinine both of which improved with IV hydration. MRI/MRA of the brain and MRA of the neck with echocardiogram was unremarkable. Ejection fraction was found to be 55-60% with diastolic dysfunction. Leukocytosis is resolved. Patient had no syncopal episode. Complains of occasional headache. No nausea no vomiting. She will be discharged today to follow primary care physician in 3-5 days Disposition: DC-01 TO HOME OR SELFCARE Time spent for discharge: 40 mins Core Measure Documentation - Palliative Care Palliative Care/ Comfort Measures: Not Applicable - Core Measures Any of the following diagnoses?: none Exam - Physical Exam Narrative exam: Constitutional: Well-nourished well-developed. In no distress Head: Normocephalic atraumatic Eyes: Pupils are equal round and reactive to light Nose: No enlarged turbinates, no septal deviation. Mouth: Moist mucous membranes. Neck: Supple no thyromegaly. No bruit. No JVD Heart: Regular rate and rhythm, S1-S2 normal. No rubs murmurs or gallop Lungs: Clear to auscultation bilaterally. no rales or rhonchi Abdomen: Soft, nontender. Bowel sound are present. Extremities: No edema, no cyanosis, no clubbing. Neuro: Alert oriented Oriented x3. No focal sensory or motor deficit. Skin: No rashes or hyperpigmented spots Musculoskeletal system: No joint pain or swelling Hematological: No petechia or subcutanous hemorrhages. Immunological: No multiple septic spots on the skin Lymphatic: No generalized lymphadenopathy Psychiatry: Euthymic. Calm. - Constitutional Vitals: Temp Pulse Resp BP Pulse Ox 98.2 F 70 16 156/83 100 02/01/19 07:30 02/01/19 07:30 02/01/19 07:30 02/01/19 07:30 02/01/19 07:30 Plan Activity: fall precautions Weight Bearing Status: Non-Weight Bearing Diet: low salt Follow up with: MARY SRIVASTAVA MD [Primary Care Provider] - 7 Days Prescriptions: Ciprofloxacin HCl [Ciprofloxacin TAB] 500 mg PO Q12HR #10 tab Butalb/Acetaminophen/Caffeine [Fioricet 50-300-40 mg CAP] 1 cap PO Q6HR PRN #20 cap PRN Reason: Headache
--- NOTE | 2019-02-01 11:55 | Progress Note ---
Assessment and Plan clinically stable No evidence thus far of a cardiac etiology of syncope tele and tte unremarkable Per pt (good historian), recent stress mpi in [place], [place] was wnl (records requested) IV abx started today for uti Liberalize fluid intake d/w pt and family at length Once discharged december f/u w/ primary window tinter. - Patient Problems (1) Syncope Current Visit: Yes Status: Acute (2) HTN (hypertension) Current Visit: Yes Status: Chronic (3) Hx of multiple sclerosis Current Visit: Yes Status: Chronic Subjective Principal diagnosis: syncope, leukocytosis, UTI. htn Interval history: no complaints family at bedside Objective Vital Signs Temp Pulse Resp BP BP Pulse Ox 02/01/19 10:45 80 146/75 02/01/19 07:30 98.2 F 70 16 156/83 100 02/01/19 07:29 98.2 F 16 156/83 02/01/19 04:54 98.2 F 69 20 145/81 99 02/01/19 02:18 98.6 F 78 164/68 01/31/19 23:14 72 98 01/31/19 23:12 98.0 F 64 18 125/71 98 01/31/19 19:26 98.7 F 70 18 120/67 98 01/31/19 19:00 71 01/31/19 15:50 69 131/73 100 01/31/19 15:47 61 113/53 93 01/31/19 14:02 66 138/67 01/31/19 12:32 98.4 F 66 18 138/67 99 - Physical Examination HEENT: Positive: PERRL, Normocephaly, Mucus Membranes Moist Neck: Positive: neck supple, trachea midline Neuro: Positive: Grossly Intact Abdomen: Positive: Soft. Negative: Tender Skin: Negative: Rash, Wound Musculoskeletal: No Pain Extremities: Absent: edema - Labs and Meds CBC 02/01/19 Range/Units 06:07 WBC 6.8 (4.5-11.0) K/mm3 RBC 3.94 (3.65-5.03) M/mm3 Hgb 12.3 (10.1-14.3) gm/dl Hct 36.8 (30.3-42.9) % Plt Count 179 (140-440) K/mm3 Lymph # 1.6 (1.2-5.4) K/mm3 [place] # 0.8 (0.0-0.8) K/mm3 Eos # 0.2 (0.0-0.4) K/mm3 Baso # 0.0 (0.0-0.1) K/mm3 - Imaging and Cardiology EKG: report reviewed, image reviewed Echo: pending - EKG Sinus rhythms and dysrhythmias: sinus rhythm
[2019-02-01 12:35] VITALS: BP 161/84
[2019-02-01] MEDS: LEVAQUIN 500MG/100ML 500 MG/100 ML BAG IV SCH (12:38)
[2019-02-01] MEDS: PERCOCET 5/325 PO PRN (13:28)
[2019-02-06] MEDS ORDERED: AVONEX SUB-Q SCH (10:00)
== END 2019-02-01 14:20 | disposition home or self-care (01) | DRG 312 ==
LOC: ED 21:11 → 4A 01-30 03:21
PROVIDERS: ADMIT Internal Medicine; ATTEND Family Medicine
DX: R55 Syncope and collapse (principal); N39.0 Urinary tract infection, site not specified; I34.1 Nonrheumatic mitral (valve) prolapse; E86.0 Dehydration; I10 Essential (primary) hypertension; F12.90 Cannabis use, unspecified, uncomplicated; R07.81 Pleurodynia; S00.83XA Contusion of other part of head, initial encounter; K21.9 Gastro-esophageal reflux disease without esophagitis; G35 Multiple sclerosis; G43.909 Migraine, unspecified, not intractable, without status migrainosus; W18.39XA Other fall on same level, initial encounter; Y93.89 Activity, other specified; Y92.098 Other place in other non-institutional residence as the place of occurrence of the external cause; Y99.8 Other external cause status; Z90.49 Acquired absence of other specified parts of digestive tract
CPT/HCPCS: 36415; 70450; 70544; 70547; 70551; 72125; 80048; 80053; 81001; 82550; 82553; 82962; 83735; 84100; 84484; 85025; 85610; 85730; 87086; 93005; 93010; 93306; G0378; J1885; J1956; J2060; J7030